=== PATIENT | female | born 1995 | race Caucasian/White ===

== ENCOUNTER 2017-08-21 23:04 | Emergency (ER) | payer MEDICAID ==
[~2017-08-21] VITALS: Ht 157.5 cm; Wt 90.7 kg
[2017-08-21 23:11] VITALS: Ht 157.5 cm; Wt 90.7 kg
[2017-08-22 01:17] LABS: PLATELET COUNT 261 x10^3mcL (130-400); RED CELL DISTRIBUTION WIDTH 13.9 % (11.5-14.5)
[2017-08-22 01:22] LABS: CALCIUM 8.6 mg/dL (8.5-10.1); CHLORIDE SERUM 102 mmol/L (98-107); CREATININE SERUM 0.6 mg/dL (0.6-1.0); GFR1 > 60 mL/min; GLUCOSE SERUM 115 mg/dL (74-106); POTASSIUM SERUM 3.5 mmol/L (3.5-5.1); SODIUM SERUM 136 mmol/L (136-145)
[2017-08-22 01:51] LABS: UA SPECIFIC GRAVITY >=1.030 (1.005-1.035); microscopic required? YES; urine erythrocyte 1+ (NEGATIVE)
[2017-08-22 02:18] LABS: BAND NEUTROPHIL 2 % (0-10); MONOCYTE 7 % (0-7); SEGMENTED NEUTROPHILS 86 % (37-75)
[2017-08-22 02:20] LABS: PLATELET MORPHOLOGY FEW LARGE PLATELETS; rbc morphology (normal/abnorm) ABNORMAL (NORMAL)
[2017-08-22 04:37] VITALS: BP 100/55
== END 2017-08-22 04:37 | disposition home or self-care (01) ==
LOC: ED 23:04 → DU 08-22 03:34 → ED 08-22 03:34
PROVIDERS: Emergency Medicine
DX: M54.5 Low back pain (principal); J02.0 Streptococcal pharyngitis; D72.829 Elevated white blood cell count, unspecified
CPT/HCPCS: 83880; 84439; J0561; J1100; J1885; J2405; J7030; Q0092

== ENCOUNTER 2020-05-27 17:42 | Emergency (ER) | payer OTHER ==
[~2020-05-27] VITALS: Ht 157.5 cm; Wt 86.6 kg
[2020-05-27 18:03] VITALS: Ht 157.5 cm; Wt 86.6 kg
[2020-05-27 18:42] LABS: BASOPHIL % 0.5 % (0-2); PLATELET COUNT 280 x10^3mcL (130-400); RED CELL DISTRIBUTION WIDTH 13.9 % (11.5-14.5)
[2020-05-27 18:52] LABS: UA SPECIFIC GRAVITY >=1.030 (1.005-1.035); microscopic required? YES; urine erythrocyte 3+ (NEGATIVE)
[2020-05-27 20:21] VITALS: BP 108/61
== END 2020-05-27 20:21 | disposition home or self-care (01) ==
LOC: ED 17:42
PROVIDERS: Emergency Medicine
DX: O20.0 Threatened abortion (principal); Z3A.08 8 weeks gestation of pregnancy